=== PATIENT | female | born 2000 | race Caucasian/White ===

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

== ENCOUNTER 2021-09-08 14:36 | Emergency (ER) | payer MEDICAID ==
[2021-09-08] MEDS ORDERED: Hydromorphone 1 mg/ml Injection IM ONE ×2 (15:06→15:48)
[2021-09-08 15:09] VITALS: O2SAT 100
[2021-09-08] MEDS ORDERED: Hydromorphone 1 mg/ml Injection ONE ×2 (15:10→15:50)
--- NOTE | 2021-09-08 15:39 | ERPHSYRPT ---
- History of Present Illness Time Seen by Provider: 09/08/21 15:15 Source: patient, family Exam Limitations: no limitations Patient Subjective Stated Complaint: pt reports walking her two dogs approx 1400 today when she tripped over the leash and fell landing on her right shoulder. pt denies LOC or any other injury at this time. Triage Nursing Assessment: pt is aox3, pupils perrl, afebrile, resps easy and non labored, cap refill < 3 seconds, radial pulses strong equal, pt ROM limited due to pain, sensation intact. pt skin pink warm dry. Physician History: Patient is a 21-year-old white female who was walking her dog got caught up in the lease and fell on her right shoulder she had no other injury she has no other pain no loss of consciousness. This occurred just prior to arrival. Occurred: just prior to arrival Method of Injury: fell Quality: sharpness, throbbing Severity of Pain-Max: severe Severity of Pain-Current: moderate Extremities Pain Location: shoulder: right (Palpable deformity of the mid clavicle area on the right side) Modifying Factors: Improves With: movement, pain medication Associated Symptoms: none Allergies/Adverse Reactions: No Known Drug Allergies Allergy (Verified 09/08/21 15:09) Hx Tetanus, Diphtheria Vaccination/Date Given: Yes Hx Influenza Vaccination/Date Given: No Hx Pneumococcal Vaccination/Date Given: No Immunizations Up to Date: Yes Travel Risk - International Travel Have you traveled outside of the country in past 3 weeks: No - Coronavirus Screening Are you exhibiting any of the following symptoms?: No Symptoms: Shortness of Breath - Vaccine Status Have you recieved a Covid-19 vaccination: No - Review of Systems Constitutional: No Fever, No Chills Eyes: No Symptoms Ears, Nose, & Throat: No Symptoms Respiratory: No Cough, No Dyspnea Cardiac: No Chest Pain, No Edema, No Syncope Abdominal/Gastrointestinal: No Abdominal Pain, No Nausea, No Vomiting, No Diarrhea Genitourinary Symptoms: No Dysuria Musculoskeletal: Joint Pain, No Back Pain, No Neck Pain Skin: No Rash Neurological: No Dizziness, No Focal Weakness, No Sensory Changes Psychological: No Symptoms Endocrine: No Symptoms All Other Systems: Reviewed and Negative - Past Medical History Pertinent Past Medical History: No Neurological History: Seizures, Other ENT History: No Pertinent History Cardiac History: No Pertinent History Respiratory History: No Pertinent History Endocrine Medical History: No Pertinent History Musculoskeletal History: Other GI Medical History: No Pertinent History History: No Pertinent History Psycho-Social History: No Pertinent History Female Reproductive Disorders: Other Other Medical History: SCOLIOSIS, mono, - Past Surgical History Past Surgical History: No Neuro Surgical History: No Pertinent History Cardiac: No Pertinent History, Vascular Surgery Respiratory: No Pertinent History Gastrointestinal: No Pertinent History Genitourinary: No Pertinent History Musculoskeletal: No Pertinent History Female Surgical History: No Pertinent History - Social History Smoking Status: Never smoker Exposure to second hand smoke: Yes Drug Use: none Patient Lives Alone: No Significant Family History: no pertinent family hx - Female History Hx Now: No - Nursing Vital Signs Nursing Vital Signs: Initial Vital Signs Temperature 97.1 F 09/08/21 15:03 Pulse Rate 71 09/08/21 15:03 Respiratory Rate 18 09/08/21 15:03 Blood Pressure 111/56 09/08/21 15:03 O2 Sat by Pulse Oximetry 100 09/08/21 15:03 Pain Scale Pain Intensity 10 - Physical Exam General Appearance: moderate distress, alert Eyes, Ears, Nose, Throat Exam: moist mucous membranes Neck Exam: non-tender, supple Cardiovascular/Respiratory Exam: chest non-tender, normal breath sounds, regular rate/rhythm, no respiratory distress Abdominal Exam: non-tender, No guarding Back Exam: normal inspection, No vertebral tenderness Shoulder Exam: deformity (Mid right clavicle), limited ROM, soft tissue tenderness Elbow/Forearm Exam: normal inspection, non-tender Wrist Exam: normal inspection, non-tender Hand Exam: normal inspection, non-tender Neuro/Tendon Exam: normal sensation, normal motor functions Mental Status Exam: alert, oriented x 3, cooperative Skin Exam: normal color, warm, dry SpO2: 100 Procedures - Splinting Time of Procedure: 15:38 Location of Splint: Right, Upper Arm Type of Splint: Other (Sling and swath) Splint Applied By: ED Nurse Pre-Proc Neuro Vasc Exam: normal Post-Proc Neuro Vasc Exam: neurovascular intact, unchanged from pre-exam - Course Nursing assessment & vital signs reviewed: Yes - Radiology Exams Shoulder X-ray Interpretation: Interpreted by me, Displaced Fracture (Right clavicle) Ordered Tests: Active Orders 24 hr Category Date Time Status SHOULDER Stat Exams 09/08/21 15:29 Taken Medication Summary Discontinued Medications Generic Name Dose Route Start Last Admin Trade Name Freq PRN Reason Stop Dose Admin Hydromorphone HCl 1 mg 09/08/21 15:06 09/08/21 15:11 Hydromorphone 1 Mg/1ml Inj 1 Mg/Ml Syringe IM 09/08/21 15:07 1 mg STAT ONE Administration Hydromorphone HCl Confirm 09/08/21 15:10 Hydromorphone 1 Mg/1ml Inj 1 Mg/Ml Syringe Administered 09/08/21 15:11 Dose 1 mg .ROUTE .STK-MED ONE - Progress Progress: improved, pain not gone completely - Departure Departure Disposition: Home Clinical Impression: Fracture of clavicle, right, closed Condition: Good Critical Care Time: No Instructions: Clavicle Fracture (DC) Prescriptions: Hydrocodone/Acetaminophen [Hydrocodone-Acetamin 5-325 mg] 1 tab PO Q6HPRN PRN 3 Days #12 tablet MDD 4 PRN Reason: Pain
[2021-09-08 16:17] VITALS: BP 100/57; PULSE 64
--- NOTE | 2021-09-08 19:46 | XRAY ---
Indication: Pain following fall. Comparison: None 3 view right shoulder demonstrates slightly comminuted complete clavicle shaft fracture with bayonet apposition/alignment. No other bony, articular, or soft tissue abnormalities.
== END 2021-09-08 16:16 | disposition home or self-care (01) ==
LOC: ED 14:36
DX: S42.021A Displaced fracture of shaft of right clavicle, initial encounter for closed fracture (principal); W01.198A Fall on same level from slipping, tripping and stumbling with subsequent striking against other object, initial encounter; Y93.K1 Activity, walking an animal; M25.511 Pain in right shoulder; Z79.891 Long term (current) use of opiate analgesic
CPT/HCPCS: 73030; 96372; 99284; J1170; L3650

== ENCOUNTER 2022-09-22 15:29 | Emergency (ER) | payer MEDICAID ==
[2022-09-22 15:53] VITALS: O2SAT 99
[2022-09-22 16:04] LABS: HCG URINE TEST NEGATIVE (NEGATIVE)
[2022-09-22 16:13] LABS: ADD URINE CULTURE? YES (NO); Appearance Cloudy (Clear); Bacteria None Seen /HPF (None Seen); Bilirubin Negative (Negative); Blood Large (Negative); Epithelial Cells Rare /HPF (None Seen); Glucose, Urine Negative (Negative); Hyaline Casts NONE SEEN /LPF (0-2); Ketones Trace (Negative); Leukocyte Esterase Moderate (Negative); Nitrite Negative (Negative); Protein,Urine Dip 100 (Negative); RBC >100 /HPF (0-5); Specific Gravity >=1.030 (1.005-1.030); WBC >100 /HPF (0-5)
--- NOTE | 2022-09-22 16:23 | ERPHSYRPT ---
- History of Present Illness Time Seen by Provider: 09/22/22 16:23 Source: patient Exam Limitations: no limitations Patient Subjective Stated Complaint: pt here for lower abd pain and burning with urination, pt also states she has not had a bm in almost a week now , no n/v Triage Nursing Assessment: pt alert, walked in, resp easy, skin w/d/p. no edema noted, abd soft Physician History: UTI sx, no fever or vomiting, no vag d/c. , mild constipation. Timing/Duration: day(s) (1) Activites at Onset: none Quality: cramping Onset Location: suprapubic Pain Radiation: none Severity of Pain-Max: mild Severity of Pain-Current: mild Prior abdominal problems: none Sexual intercourse history: non-contributory Modifying Factors: Improves With: nothing Allergies/Adverse Reactions: No Known Drug Allergies Allergy (Verified 09/22/22 15:52) Hx Tetanus, Diphtheria Vaccination/Date Given: No Hx Influenza Vaccination/Date Given: No Hx Pneumococcal Vaccination/Date Given: No Travel Risk - International Travel Have you traveled outside of the country in past 3 weeks: No - Coronavirus Screening Are you exhibiting any of the following symptoms?: No Close contact with a COVID-19 positive Pt in past 14-21 Days: No - Vaccine Status Have you recieved a Covid-19 vaccination: No - Review of Systems Constitutional: No Symptoms Eyes: No Symptoms Ears, Nose, & Throat: No Symptoms Respiratory: No Symptoms Cardiac: No Symptoms Abdominal/Gastrointestinal: No Symptoms Genitourinary Symptoms: No Symptoms Musculoskeletal: No Symptoms Skin: No Symptoms Neurological: No Symptoms Psychological: No Symptoms Endocrine: No Symptoms Hematologic/Lymphatic: No Symptoms Immunological/Allergic: No Symptoms All Other Systems: Reviewed and Negative - Past Medical History Pertinent Past Medical History: No Neurological History: Seizures, Other ENT History: No Pertinent History Cardiac History: No Pertinent History Respiratory History: No Pertinent History Endocrine Medical History: No Pertinent History Musculoskeletal History: Other GI Medical History: No Pertinent History History: No Pertinent History Psycho-Social History: No Pertinent History Female Reproductive Disorders: Other Other Medical History: SCOLIOSIS, mono, - Past Surgical History Past Surgical History: No Neuro Surgical History: No Pertinent History Cardiac: No Pertinent History, Vascular Surgery Respiratory: No Pertinent History Gastrointestinal: No Pertinent History Genitourinary: No Pertinent History Musculoskeletal: Orthopedic Surgery Female Surgical History: No Pertinent History - Social History Smoking Status: Never smoker Exposure to second hand smoke: No Drug Use: none Patient Lives Alone: No Significant Family History: no pertinent family hx - Female History Hx Last Menstrual Period: august 17 Hx Now: No - Nursing Vital Signs Nursing Vital Signs: Initial Vital Signs Temperature 97.8 F 09/22/22 15:52 Pulse Rate 99 H 09/22/22 15:52 Respiratory Rate 18 09/22/22 15:52 Blood Pressure 125/59 09/22/22 15:52 O2 Sat by Pulse Oximetry 99 09/22/22 15:52 Pain Scale Pain Intensity 0 - Physical Exam General Appearance: no apparent distress Eye Exam: PERRL/EOMI Ears, Nose, Throat Exam: normal ENT inspection Neck Exam: normal inspection, non-tender Respiratory Exam: normal breath sounds, lungs clear Cardiovascular Exam: regular rate/rhythm, normal heart sounds Gastrointestinal/Abdomen Exam: soft, normal bowel sounds, tenderness (mild suprapubic) Pelvic Exam: deferred Rectal Exam: deferred Back Exam: normal inspection, normal range of motion, No CVA tenderness Extremity Exam: normal inspection, normal range of motion Neurologic Exam: alert, oriented x 3 Skin Exam: normal color, warm SpO2 Interpretation: normal SpO2: 99 O2 Delivery: Room Air Ordered Tests: Active Orders 24 hr Category Date Time Status CULTURE,URINE Stat Lab 09/22/22 16:00 Received HCG QUALITATIVE, URINE Stat Lab 09/22/22 16:00 Completed UA W/RFX UR CULTURE Stat Lab 09/22/22 16:00 Completed Medication Summary Discontinued Medications Generic Name Dose Route Start Last Admin Trade Name Nestor PRN Reason Stop Dose Admin Ceftriaxone Sodium 1,000 mg 09/22/22 17:25 Ceftriaxone Sodium 1000 Mg Inj Vial IM 09/22/22 17:26 STAT ONE Ceftriaxone Sodium Confirm 09/22/22 17:33 Ceftriaxone Sodium 1000 Mg Inj Vial Administered 09/22/22 17:34 Dose 1,000 mg .ROUTE .STK-MED ONE Lidocaine HCl Confirm 09/22/22 17:33 Lidocaine Hcl 1% 20 Ml Mdv 20 Ml Ml Administered 09/22/22 17:34 Dose 3 ml .ROUTE .STK-MED ONE Lab/Rad Data: Laboratory Results 09/22/22 09/22/22 Range/Units 16:00 16:00 Urine Color Dark Yellow A (Yellow) Urine Appearance Cloudy A (Clear) Urine pH 5.0 (4.6-8.0) Ur Specific [place] >=1.030 A (1.005-1.030) Urine Protein 100 A (Negative) Urine Glucose (UA) Negative (Negative) mg/dL Urine Ketones Trace A (Negative) Urine Blood Large A (Negative) Urine Nitrite Negative (Negative) Urine Bilirubin Negative (Negative) Urine Urobilinogen 1.0 A (0.2) mg/dL Ur Leukocyte Esterase Moderate A (Negative) U Hyaline Cast (Auto) NONE SEEN (0-2) /LPF Urine Microscopic RBC >100 A (0-5) /HPF Urine Microscopic WBC >100 A (0-5) /HPF Ur Epithelial Cells Rare (None Seen) /HPF Urine Bacteria None Seen (None Seen) /HPF Urine Culture Reflexed YES (NO) Urine HCG, Qual NEGATIVE (NEGATIVE) - Progress Progress: unchanged Air Movement: good Progress Note: 09/22/22 17:38 UTI, WBC and RBC, no sx of stone, Rocephin and rx abx, OTC laxatives Blood Culture(s) Obtained: No Antibiotics given: Yes Counseled pt/family regarding: lab results, diagnosis, need for follow-up Medical Desision Making - Risk of complications Minimal Risk: Minimal risk of morbidity - Departure Departure Disposition: Home Clinical Impression: Cystitis, acute hemorrhagic Condition: Stable Critical Care Time: No Referrals: CHRIS CHAUHAN, NICOLE [Primary Care Provider] - Follow up/PCP as directed Additional Instructions: Drink more water, OTC med as helpful, recheck with PCP in 3 days, sooner if needed. For constipation, OTC laxatives as needed. Forms: Work/School Release Form Prescriptions: Nitrofurantoin Macrocrystal [Nitrofurantoin] 100 mg PO BID 7 Days #14 cap
[2022-09-22] MEDS ORDERED: Rocephin 1000 MG INJ IM ONE (17:25)
[2022-09-22 17:29] VITALS: BP 110/56; PULSE 101
[2022-09-22] MEDS ORDERED: Rocephin 1000 MG INJ ONE (17:33)
[2022-09-22] MEDS ORDERED: XYLOCAINE 1% HCL 20 ML MDV ONE (17:33)
== END 2022-09-22 17:54 | disposition home or self-care (01) ==
LOC: ED 15:29
DX: N30.01 Acute cystitis with hematuria (principal); R30.0 Dysuria; Z28.310 Unvaccinated for COVID-19
CPT/HCPCS: 36415; 81001; 81025; 87086; 96372; 99283; J0696

== ENCOUNTER 2024-03-23 18:50 | Emergency (ER) | payer OTHER ==
[2024-03-23 19:20] VITALS: TEMP 98.6
[2024-03-23 21:07] VITALS: RESP 18; O2SAT 98
[2024-03-23 21:32] LABS: CHLAMYDIA DNA NOT DETECTED (NEGATIVE); GC DNA Probe NOT DETECTED (NEGATIVE)
[2024-03-23 21:59] LABS: Candida Group NOT DETECTED (NEGATIVE); Candida glab/krus NOT DETECTED (NEGATIVE)
--- NOTE | 2024-03-23 22:14 | ERPHSYRPT ---
- History of Present Illness Time Seen by Provider: 03/23/24 19:20 Source: patient Exam Limitations: no limitations Patient Subjective Stated Complaint: pt states that she has an odor, burning, and itching in her vagina. pt states that she uses a diva cup and is worried th at she has an infection from that Triage Nursing Assessment: pt ambulated into the er; pt is axo x4; pt states 5/10 pain to pelvis; skin PDW; no repiratory distress present; vitals wnl Physician History: 23-year-old female presents to our ED for evaluation of burning itching and odor of her vagina. Patient has been using the same diva cup for over a year. Patient is sexually active. STI is of concern as well. No abdominal pain. No pelvic pain. No nausea no vomiting no diarrhea no rash. Symptoms have been ongoing for the past several days. The area is tender to manipulation/palpation. Patient denies trauma. Mild dysuria. Patient voices no other complaints or concerns at this time. Timing/Duration: today Severity: moderate Associated Symptoms: denies symptoms Allergies/Adverse Reactions: No Known Drug Allergies Allergy (Verified 03/23/24 19:07) Hx Tetanus, Diphtheria Vaccination/Date Given: Yes Hx Influenza Vaccination/Date Given: No Hx Pneumococcal Vaccination/Date Given: No Immunizations Up to Date: No Travel Risk - International Travel Have you traveled outside of the country in past 3 weeks: No - Emerging Infectious Disease Are you exhibiting symptoms associated with any current EIDs: No - Review of Systems Constitutional: No Symptoms, No Fever, No Chills Eyes: No Symptoms Ears, Nose, & Throat: No Symptoms Respiratory: No Symptoms, No Cough, No Dyspnea Cardiac: No Symptoms, No Chest Pain, No Edema, No Syncope Abdominal/Gastrointestinal: No Symptoms, No Abdominal Pain, No Nausea, No Vomiting, No Diarrhea Genitourinary Symptoms: No Symptoms, No Dysuria Musculoskeletal: No Symptoms, No Back Pain, No Neck Pain Skin: No Symptoms, No Rash Neurological: No Symptoms, No Dizziness, No Focal Weakness, No Sensory Changes Psychological: No Symptoms Endocrine: No Symptoms Hematologic/Lymphatic: No Symptoms Immunological/Allergic: No Symptoms All Other Systems: Reviewed and Negative - Past Medical History Pertinent Past Medical History: Yes Neurological History: Seizures, Other ENT History: No Pertinent History Cardiac History: No Pertinent History Respiratory History: No Pertinent History Endocrine Medical History: No Pertinent History Musculoskeletal History: Other GI Medical History: No Pertinent History History: No Pertinent History Psycho-Social History: No Pertinent History Female Reproductive Disorders: Other Other Medical History: SCOLIOSIS, mono, - Past Surgical History Past Surgical History: Yes Neuro Surgical History: No Pertinent History Cardiac: No Pertinent History, Vascular Surgery Respiratory: No Pertinent History Gastrointestinal: No Pertinent History Genitourinary: No Pertinent History Musculoskeletal: Orthopedic Surgery Female Surgical History: No Pertinent History Significant Family History: no pertinent family hx - Female History Hx Last Menstrual Period: 03/22/24 Hx Now: No - Social History Smoking Status: Never smoker Exposure to second hand smoke: No Drug Use: none Patient Lives Alone: No - Social Determinants of Health Will the patient participate in the screening: Yes Do you worry about a steady place to live?: No Do you have any problems with any of the following?: No known problems In the past 12 months,have you had to go without utilities?: No Transportation Issues: No Has anyone in your support network made you feel unsafe?: No Have you or anyone in your house had to go without enough: No - Nursing Vital Signs Nursing Vital Signs: Initial Vital Signs Pulse Rate 77 03/23/24 19:07 Blood Pressure 116/70 03/23/24 19:07 O2 Sat by Pulse Oximetry 98 03/23/24 19:07 Pain Scale Pain Intensity 5 - Physical Exam General Appearance: no apparent distress, alert Eye Exam: PERRL/EOMI, eyes nml inspection Ears, Nose, Throat Exam: normal ENT inspection, moist mucous membranes Neck Exam: normal inspection, non-tender, supple, full range of motion Respiratory Exam: normal breath sounds, lungs clear, airway intact, No respiratory distress Cardiovascular Exam: regular rate/rhythm, normal heart sounds, normal peripheral pulses Gastrointestinal/Abdomen Exam: soft, normal bowel sounds, No tenderness, No mass Pelvic Exam: normal external exam, other (Nonremarkable vaginal exam), No adnexal tenderness, No adnexal mass, No mass, No cervical motion tenderness, No vaginal bleeding, No uterine tenderness, No vaginal discharge Back Exam: normal inspection, normal range of motion, No CVA tenderness, No vertebral tenderness Extremity Exam: normal inspection, normal range of motion, pelvis stable Neurologic Exam: alert, oriented x 3, cooperative, normal mood/affect, sensation nml, No motor deficits Skin Exam: normal color, warm, dry, No rash Lymphatic Exam: No adenopathy SpO2 Interpretation: normal SpO2: 98 O2 Delivery: Room Air - Course Nursing assessment & vital signs reviewed: Yes Ordered Tests: Active Orders 24 hr Category Date Time Status CULTURE,URINE Stat Lab 03/23/24 22:14 Received UA W/RFX UR CULTURE Stat Lab 03/23/24 22:14 Completed Medication Summary Discontinued Medications Generic Name Dose Route Start Last Admin Trade Name Freq PRN Reason Stop Dose Admin Nitrofurantoin Macrocrystals 100 mg 03/23/24 22:27 03/23/24 22:29 Nitrofurantoin Macro 100 Mg Capsule PO 03/23/24 22:28 100 mg STAT ONE Administration Lab/Rad Data: Laboratory Results 03/23/24 03/23/24 03/23/24 Range/Units 22:14 19:45 19:30 Urine Color Yellow (Yellow) Urine Appearance Clear (Clear) Urine pH 5.5 (4.6-8.0) Ur Specific [place] 1.025 (1.005-1.030) Urine Protein Negative (Negative) Urine Glucose (UA) Negative (Negative) mg/dL Urine Ketones Negative (Negative) Urine Blood Negative (Negative) Urine Nitrite Negative (Negative) Urine Bilirubin Negative (Negative) Urine Urobilinogen 1.0 A (0.2) mg/dL Ur Leukocyte Esterase Moderate A (Negative) U Hyaline Cast (Auto) NONE SEEN (0-2) /LPF Urine Microscopic RBC 0-2 (0-5) /HPF Urine Microscopic WBC 21-50 A (0-5) /HPF Ur Epithelial Cells Rare (None Seen) /HPF Urine Bacteria None Seen (None Seen) /HPF Urine Culture Reflexed YES (NO) Vaginal Morena Group NOT DETECTED (NEGATIVE) Morena species NOT DETECTED (NEGATIVE) Chlamydia DNA Probe NOT DETECTED (NEGATIVE) N.gonorrhoeae DNA Probe NOT DETECTED (NEGATIVE) T. vaginalis (PCR) NOT DETECTED (NEGATIVE) Bact vaginosis (PCR) NEGATIVE (NEGATIVE) - Progress Progress: improved Progress Note: 23-year-old female presents to our ED for evaluation of vaginal burning itching and odor. Pelvic exam performed with RN present. No obvious abnormalities observed. However patient was tender during our exam. GC chlamydia negative. Vaginal panel negative. UA positive for UTI. Patient received a dose of Macrobid in our ED. A prescription for the same was forwarded to patient's pharmacy. Patient uses a diva cup... Patient has been using the same diva cup. We advised patient change her diva cup. Patient may try probiotic as well. However no indication for further workup at this time. Will discharge home. Patient agrees to follow-up with her primary care doctor within 48 hours for reevaluation. Portions of this note were created with voice recognition technology. There may be grammatical, spelling, punctuation or sound alike errors Complexity of problem addressed is moderate acute complicated. No critical care time. Complex of data reviewed and analyzed is moderate. Test ordered chest reviewed results analyzed and correlated clinically with history and physical exam. Risk of complication and or risk of morbidity/mortality of patient management is low. Vital stable. Time spent to discharge patient approximately 20 minutes. Plan of care established for shared decision making. No social determinants of health present to impede follow-up. Portions of this note were created with voice recognition technology. There may be grammatical, spelling, punctuation or sound alike errors 03/23/24 22:18 Counseled pt/family regarding: lab results, diagnosis, need for follow-up - Departure Departure Disposition: Home Clinical Impression: Vaginitis, UTI (urinary tract infection) Condition: Stable Critical Care Time: No Referrals: DOCTOR,NO FAMILY [Primary Care Provider] - Follow up/PCP as directed DAR CHACON DO [ACTIVE STAFF] - Follow up/PCP as directed Instructions: Urinary Tract Infection, Adult ED Additional Instructions: Discharge/Care Plan GAELGONZALEZ LOUISE was seen on 03/23/24 in the Emergency Room. The patient was counseled regarding Diagnosis,Lab results, Imaging studies, need for follow up and when to return to the Emergency Room. Prescriptions given: Discharge Note I have spoken with the patient and/or caregivers. I have explained the patient's condition, diagnosis and treatment plan based on the information available to me at this time. I have answered the patient's and/or caregiver's questions and addressed any concerns. The patient and/or caregivers have as good understanding of the patient's diagnosis, condition and treatment plan as can be expected at this point. The vital signs have been stable. The patient's condition is stable and appropriate for discharge from the emergency department. The patient will pursue further outpatient evaluation with the primary care physician or other designated or consulting physician as outlined in the discharge instructions. The patient and/or caregivers are agreeable to this plan of care and follow-up instructions have been explained in detail. The patient and/or caregivers have received these instruction. The patient/and or caregivers are aware that any significant change in condition or worsening of symptoms should prompt an immediate return to this or the closest emergency department or call 911. Forms: Work/School Release Form Prescriptions: Nitrofurantoin Macro 100 mg [Macrobid 100MG Capsule] 100 mg PO BID 7 Days #14 cap
[2024-03-23 22:22] LABS: Appearance Clear (Clear); Bacteria None Seen /HPF (None Seen); Bilirubin Negative (Negative); Blood Negative (Negative); Epithelial Cells Rare /HPF (None Seen); Glucose, Urine Negative (Negative); Hyaline Casts NONE SEEN /LPF (0-2); Ketones Negative (Negative); Leukocyte Esterase Moderate (Negative); Nitrite Negative (Negative); Ph 5.5 (4.6-8.0); Protein,Urine Dip Negative (Negative); RBC 0-2 /HPF (0-5); Specific Gravity 1.025 (1.005-1.030); WBC 21-50 /HPF (0-5)
[2024-03-23] MEDS: Macrobid 100MG Capsule PO ONE (22:29)
[2024-03-23] MEDS ORDERED: Macrobid 100MG Capsule ONE (22:29)
[2024-03-23 22:33] VITALS: BP 110/60; PULSE 77
== END 2024-03-23 22:35 | disposition home or self-care (01) ==
LOC: ED 18:50
DX: N76.0 Acute vaginitis (principal); N39.0 Urinary tract infection, site not specified; Z79.899 Other long term (current) drug therapy
CPT/HCPCS: 81001; 87077; 87086; 87186; 87481; 87491; 87591; 87661; 87801; 99283; A9270-GY